=== PATIENT | female | born 1975 | race Caucasian/White ===

== ENCOUNTER → 2020-12-31 08:56 | Outpatient (BNVA) | payer OTHER, SELFPAY | PROVIDERS: PCP Family Medicine; Visit Provider Urology ==

== ENCOUNTER → 2021-09-01 13:43 | Outpatient (BNVA) | payer OTHER, SELFPAY | PROVIDERS: PCP Family Medicine; Visit Provider Physician Assistant Medical | DX: S39.012A Strain of muscle, fascia and tendon of lower back, initial encounter (principal); W18.30XA Fall on same level, unspecified, initial encounter | CPT/HCPCS: 72100; 99204 ==

== ENCOUNTER 2021-10-14 15:00 | Outpatient (RCR) | payer OTHER, SELFPAY ==
--- NOTE | 2021-09-15 11:37 | MHC.PT.EP ---
[facility] [place] [facility] [place] [facility] [place] [facility] [address] Thor Rivera [address] [phone] F: [phone] F: [phone] F: [phone] F: [phone] Physical Therapy Plan of Care Date of Evaluation: Date of Surgery: Diagnosis: This is a 46 yo female presenting to skilled PT with a script for lumbar pain due to fall. Assessment: This is a 46 yo female presenting to skilled PT with a script for lumbar pain due to fall. Patient tripped over a cord at work. She landed on her R knee and rotated to the L landing on her back. Pain started the next day and felt like whiplash. Fall was on 08/18/21 (she also had a fall back in may/jun where she slipped and fell backward on ice in the parking lot as well, little pain was noted with this fall but wonders if this compounded the pain she is feeling now). Pain is located lumbar spine/distal thoracic and is centralized (a little off to the L). Pain is constant, achy and occasionally sharp at times. She has tried to change her shoe wear but this didn't help. No change in positional changes noted as well. She has also tried a heating pad and ice without relief. 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 Assessment reveals pain that ranges up to a 6/10. She demos decreased lumbar and thoracic ROM, decreased hip, glut and core strength, impaired joint mobility throughout spine, + s/s consistent with thoracic (T12) and lumbar rotation (L4) as well as SIJ involvement. Pain has been a limiting factor for functional transfers, prolonged positions and normal daily routine. She is an excellent candidate for skilled PT 2x/wk for 5wks Frequency and Duration: The patient will be seen 2x/wk for 5wks Short Term Goals: I in HEP Demo proper TAC and core stab without cuing from PT Demo equal ASIS, lumbar/thoracic alignment [employer] Goals: Demos functional ROM and strength Improve oswestry by at least 10 points Improve pain at the worst to no more than 2/10 Demo proper lifting techniques without increase in pain or radiating symptoms Treatment Plan: Modalities to reduce pain, spasms and effusion. Manual therapy to restore motion and function. Therapeutic exercise to improve strength and flexibility. Neuromuscular re-education for posture and balance. Therapeutic activities to return to functional activities of daily living. Electronically signed by: Jumana Richardson PT Please sign and return to therapist. Thank you for your referral.
--- NOTE | 2021-10-26 15:18 | MHC.PT.DC ---
[facility] [place] [facility] [place] [facility] [place] [facility] [address] Thor Rivera [address] [phone] F: [phone] F: [phone] F: [phone] F: [phone] Physical Therapy Discharge Report Diagnosis: This is a 46 yo female presenting to skilled PT with a script for lumbar pain due to fall. Date of Surgery: Date of Evaluation: 09/14/21 Date of Discharge: 10/26/21 Treatments to Date: 6 Cancellations to Date: 0 No Shows to Date: Discharge Status: Improved Function Independent with HEP Patient Elected to Stop Discharge Summary: Patient reports that she is feeling better but PT noted that she is still moving cautiously with transfers. She demos normal ASIS and improved general alignment at the last tx session. She would benefit from continued stretching and core stab however she missed the last few appointments, she was called and front office representative left a message but we did not hear back from her. Due to this, her chart was DC'd to HEP and patient can be re-evaled if needed. She has an appropriate HEP to continue on own. Electronically signed by: Jumana Richardson PT Please sign and return to therapist. Thank you for your referral.
== END 2021-10-26 15:19 | disposition home or self-care (01) ==
LOC: HO.PTCHIC 15:00
PROVIDERS: PCP Family Medicine; Visit Provider Physician Assistant
DX: M54.50 Low back pain, unspecified (principal)
CPT/HCPCS: 97110; 97140; 97162